=== PATIENT | male | born 1935 | race Caucasian/White ===

== ENCOUNTER 2018-05-15 00:11 | Emergency (ER) | payer MEDICARE, OTHER ==
[2018-05-15 00:25] VITALS: BP 138/82
--- NOTE | 2018-05-15 00:34 | EDM.PDOC ---
ED HPI GENERAL MEDICAL PROBLEM - General Chief Complaint: Genitourinary Problem Stated Complaint: NEEDS BLADDER DRAINED Time Seen by Provider: 05/15/18 00:15 Source of Information: Reports: Patient History Limitations: Reports: No Limitations - History of Present Illness INITIAL COMMENTS - FREE TEXT/NARRATIVE: 82-year-old male who [place] day and drinking coffee did not frequent the bathroom often enough and developed acute urinary retention. This has happened to him several times over the past 5- 10 years. It hasn't happened since he stopped drinking beer 4 years ago. He had no urinary symptoms prior such as dysuria, back pain or fever. He does have benign prostatic hypertrophy. Onset: Gradual (Over the course of 12 hours) Location: Reports: Abdomen Severity: Moderate Associated Symptoms: Reports: No Other Symptoms - Related Data Allergies Allergy/AdvReac Type Severity Reaction Status Date / Time simvastatin Allergy Other Verified 05/15/18 00:23 Home Meds: Home Meds Amitriptyline [Elavil] 25 mg PO BEDTIME 07/24/13 [History] Ascorbic Acid [Vitamin C] 500 mg PO DAILY 07/24/13 [History] Aspirin [Patito Chewable] 81 mg PO DAILY 07/24/13 [History] Calcium Carbonate/Vitamin D3 [Calcium 500 + Vit D 200 Caplet] 1 tab PO DAILY 01/29 [History] Doxazosin Mesylate [Cardura] 8 mg PO BEDTIME 07/24/13 [History] Fish Oil/[place]-3 Fatty Acids [Fish Oil] 1 each PO DAILY 07/24/13 [History] Mometasone Furoate [Nasonex [place]] 2 spray RASHEEDA DAILY 07/24/13 [History] Multivitamin [Multivitamins] 1 each PO DAILY 07/24/13 [History] Omeprazole Magnesium [Prilosec Otc] 20 mg PO BEDTIME 07/24/13 [History] Sildenafil [Viagra] 100 mg PO BEDTIME PRN 07/24/13 [History] amLODIPine [Norvasc] 5 mg PO BEDTIME 07/24/13 [History] atorvaSTATin [Lipitor] 40 mg PO BEDTIME 07/24/13 [History] Levothyroxine 75 mcg PO ACBREAKFAST 10/10/15 [History] Past Medical History HEENT History: Reports: Cataract Cardiovascular History: Reports: High Cholesterol, Hypertension Gastrointestinal History: Reports: Hemorrhoids Musculoskeletal History: Reports: Arthritis Neurological History: Reports: None Endocrine/Metabolic History: Reports: Hypothyroidism Oncologic (Cancer) History: Reports: Basal Cell Carcinoma Other Oncologic History: had skin cancer removed from left upper chest Oct 04, 2015 - Infectious Disease History Infectious Disease History: Reports: Chicken Pox - Past Surgical History HEENT Surgical History: Reports: Naso-Sinus Surgery, Oral Surgery, Other (See Below) Other HEENT Surgeries/Procedures: uvula removed GI Surgical History: Reports: Other (See Below) Other GI Surgeries/Procedures: hemorrhoid surgery Neurological Surgical History: Reports: Intracranial Other Neurological Surgeries/Procedures: benign brain tumor removed Musculoskeletal Surgical History: Reports: Arthroscopic Knee Oncologic Surgical History: Reports: Other (See Below) Social & Family History - Family History Family Medical History: Noncontributory - Tobacco Use Smoking Status *Q: Never Smoker - Caffeine Use Caffeine Use: Reports: Coffee - Recreational Drug Use Recreational Drug Use: No ED ROS GENERAL - Review of Systems Review Of Systems: See Below Constitutional: Denies: Fever, Chills Respiratory: Denies: Shortness of Breath Cardiovascular: Denies: Chest Pain GI/Abdominal: Reports: Abdominal Pain. Denies: Nausea, Vomiting : Reports: Urinary Retention ED EXAM, RENAL/ - Physical Exam Exam: See Below Exam Limited By: No Limitations General Appearance: Alert, Moderate Distress Respiratory/Chest: No Respiratory Distress GI/Abdominal: Distended (Tight and uncomfortable in the suprapubic area) Neurological: Alert, Oriented Course - Vital Signs Last Recorded V/S: Last Vital Signs Temp 97.2 F 05/15/18 00:24 Pulse 71 05/15/18 00:24 Resp 15 05/15/18 00:24 BP 138/82 05/15/18 00:24 Pulse Ox 97 05/15/18 00:24 - Orders/Labs/Meds Orders: Active Orders 24 hr Category Date Time Status Urinary Catheter Assessment [RC] ASDIRECTED Care 05/15/18 00:39 Active - Re-Assessments/Exams Free Text/Narrative Re-Assessment/Exam: 05/15/18 00:32 A Greene was placed, and over 1100 mL of urine was released. It was clear, and his symptoms resolved. The Greene was removed and the patient will return if symptoms recur. Departure - Departure Time of Disposition: 00:42 Disposition: Home, Self-Care 01 Condition: Good Clinical Impression: Retention of urine - Discharge Information Instructions: Acute Urinary Retention, Male Referrals: Sterling Benavides MD [Primary Care Provider] - Forms: ED Department Discharge Care Plan Goals: Avoid holding urine, when you feel the urge to go, go to the bathroom. Return if symptoms recur. - My Orders Last 24 Hours: My Active Orders 05/15/18 00:39 Urinary Catheter Assessment [RC] ASDIRECTED - Assessment/Plan Last 24 Hours: My Active Orders 05/15/18 00:39 Urinary Catheter Assessment [RC] ASDIRECTED
== END 2018-05-15 00:42 | disposition home or self-care (01) ==
LOC: JP.ED 00:11
DX: R33.9 Retention of urine, unspecified (principal); I10 Essential (primary) hypertension; E78.00 Pure hypercholesterolemia, unspecified; E03.9 Hypothyroidism, unspecified; Z88.8 Allergy status to other drugs, medicaments and biological substances; Z79.899 Other long term (current) drug therapy; Z79.82 Long term (current) use of aspirin
CPT/HCPCS: 51702; 99282; 99283

== ENCOUNTER 2020-06-27 14:53 | Emergency (ER) | payer MEDICARE, OTHER ==
[2020-06-27 15:15] VITALS: BP 142/84; PULSE 82
--- NOTE | 2020-06-27 15:32 | EDM.PDOC ---
ED HPI GENERAL MEDICAL PROBLEM - General Chief Complaint: Genitourinary Problem Stated Complaint: BLADDER DRAIN Time Seen by Provider: 06/27/20 15:00 Source of Information: Reports: Patient History Limitations: Reports: No Limitations - History of Present Illness Onset: Today, Sudden Duration: Getting Worse. No: Waxing/Waning Location: Reports: Abdomen Quality: Reports: Pressure Severity: Moderate Improves with: Reports: None Worsens with: Reports: None Associated Symptoms: Reports: No Other Symptoms - Related Data Allergies Allergy/AdvReac Type Severity Reaction Status Date / Time simvastatin AdvReac Muscle Verified 06/29/19 09:59 Aches Home Meds: Home Meds Amitriptyline [Elavil] 25 mg PO BEDTIME 07/24/13 [History] Ascorbic Acid [Vitamin C] 1,000 mg PO DAILY 07/24/13 [History] Aspirin [Patito Chewable] 81 mg PO DAILY 07/24/13 [History] Calcium Carbonate/Vitamin D3 [Calcium 500 + Vit D 200 Caplet] 1 tab PO DAILY 07/24/13 [History] Doxazosin Mesylate [Cardura] 8 mg PO BEDTIME 07/24/13 [History] Fish Oil/[place]-3 Fatty Acids [Fish Oil] 1 each PO DAILY 07/24/13 [History] Mometasone Furoate [Nasonex [place]] 2 spray RASHEEDA DAILY 07/24/13 [History] Multivitamin [Multivitamins] 1 each PO DAILY 07/24/13 [History] Omeprazole Magnesium [Prilosec Otc] 20 mg PO BEDTIME 07/24/13 [History] Sildenafil [Viagra] 100 mg PO BEDTIME PRN 07/24/13 [History] amLODIPine [Norvasc] 5 mg PO BEDTIME 07/24/13 [History] atorvaSTATin [Lipitor] 40 mg PO BEDTIME 07/24/13 [History] Levothyroxine 75 mcg PO ACBREAKFAST 10/10/15 [History] Past Medical History HEENT History: Reports: Cataract Cardiovascular History: Reports: High Cholesterol, Hypertension Respiratory History: Reports: Sleep Apnea Gastrointestinal History: Reports: Colon Polyp, GERD, Hemorrhoids Genitourinary History: Reports: BPH, Other (See Below) Other Genitourinary History: Acute urinary retention several times over past 5- 10 years, [place] to drain Musculoskeletal History: Reports: None Other Musculoskeletal History: s/p R partial knee 06/29/19 Neurological History: Reports: None Psychiatric History: Reports: None Endocrine/Metabolic History: Reports: Hypothyroidism Hematologic History: Reports: None Immunologic History: Reports: None Oncologic (Cancer) History: Reports: Basal Cell Carcinoma Other Oncologic History: had skin cancer removed from left upper chest Oct 04, 2015 Dermatologic History: Reports: Other (See Below) Other Dermatologic History: history of basal cell carcinoma - Infectious Disease History Infectious Disease History: Reports: Chicken Pox, Measles, Mumps - Past Surgical History Head Surgeries/Procedures: Reports: None HEENT Surgical History: Reports: Cataract Surgery, Naso-Sinus Surgery, Oral Surgery, Other (See Below) Other HEENT Surgeries/Procedures: uvula removed Cardiovascular Surgical History: Reports: None Respiratory Surgical History: Reports: None GI Surgical History: Reports: Colonoscopy, Other (See Below) Other GI Surgeries/Procedures: hemorrhoid surgery Neurological Surgical History: Reports: Intracranial Other Neurological Surgeries/Procedures: benign brain tumor removed Musculoskeletal Surgical History: Reports: Arthroscopic Knee, Knee Replacement, Other (See Below) Other Musculoskeletal Surgeries/Procedures:: L partial knee arthroplasty ~2004. R knee repair with hardware 01/2015. R partial knee arthroplasty 06/29/2019 Oncologic Surgical History: Reports: Other (See Below) Dermatological Surgical History: Reports: Skin Biopsy Social & Family History - Family History Family Medical History: Noncontributory - Tobacco Use Tobacco Use Status *Q: Never Tobacco User - Caffeine Use Caffeine Use: Reports: Coffee ED ROS GENERAL - Review of Systems Review Of Systems: See Below Constitutional: Reports: No Symptoms HEENT: Reports: No Symptoms Respiratory: Reports: No Symptoms Cardiovascular: Reports: No Symptoms Endocrine: Reports: No Symptoms GI/Abdominal: Reports: No Symptoms : Reports: Urinary Retention Musculoskeletal: Reports: No Symptoms Skin: Reports: No Symptoms ED EXAM, RENAL/ - Physical Exam Exam: See Below Text/Narrative:: Alert cooperative elderly male no distress lying quietly on the gurney genital exam unremarkable of the head and the exam appears to be without trauma or abnormality chest clear regular rate and rhythm abdomen appears to be generally soft with a mass there initially before urine was drained. External genitalia appears to be normal with a catheter in place. Skin extremities are normal Exam Limited By: No Limitations General Appearance: Alert, WD/WN, Anxious, Mild Distress Nose: Normal Inspection, Normal Mucosa, No Blood Head: Atraumatic Neck: Normal Inspection Respiratory/Chest: No Respiratory Distress Cardiovascular: Regular Rate, Rhythm GI/Abdominal: Normal Bowel Sounds, Mass (Male) Exam: Normal Inspection Extremities: Normal Inspection Course - Vital Signs Text/Narrative:: Catheter is placed as the patient has had this on occasions on the past. He is draining urine and feeling better. Historically he gets it placed urine removed and catheter is removed until the next time which is usually some months Pain better by about 4 PM and is discharged Last Recorded V/S: Last Vital Signs Temp 35.6 C L 06/27/20 15:23 Pulse 82 06/27/20 15:23 Resp 12 06/27/20 15:23 BP 142/84 H 06/27/20 15:23 Pulse Ox 98 06/27/20 15:23 Departure - Departure Time of Disposition: 16:05 Disposition: Home, Self-Care 01 Condition: Good Clinical Impression: Urine retention, Retention of urine - Discharge Information Instructions: Acute Urinary Retention, Male, [id number] Referrals: Sterling Benavides MD [Primary Care Provider] - Forms: ED Department Discharge Sepsis Event Note (ED) - Evaluation Sepsis Screening Result: No Definite Risk - Focused Exam Vital Signs: Vital Signs Temp Pulse Resp BP Pulse Ox 06/27/20 15:23 35.6 C L 82 12 142/84 H 98 06/27/20 15:14 35.6 C L 82 12 142/84 H 98
== END 2020-06-27 16:14 | disposition home or self-care (01) ==
LOC: JP.ED 14:53
DX: R33.9 Retention of urine, unspecified (principal); I10 Essential (primary) hypertension; E78.00 Pure hypercholesterolemia, unspecified; K21.9 Gastro-esophageal reflux disease without esophagitis; E03.9 Hypothyroidism, unspecified; Z88.8 Allergy status to other drugs, medicaments and biological substances; Z79.82 Long term (current) use of aspirin; Z79.899 Other long term (current) drug therapy
CPT/HCPCS: 99283

== ENCOUNTER 2020-08-14 14:24 | Emergency (ER) | payer MEDICARE, OTHER ==
[2020-08-14 15:07] VITALS: BP 133/77; PULSE 75
[2020-08-14] MEDS ORDERED: Bacitracin Oint 1 GM U/D Packet TOP ONE (15:48)
--- NOTE | 2020-08-14 15:51 | EDM.PDOC ---
ED HPI GENERAL MEDICAL PROBLEM - General Chief Complaint: Upper Extremity Injury/Pain Stated Complaint: LEFT THUMB INJURED WHILE USING CROSSBOW Time Seen by Provider: 08/14/20 15:45 Source of Information: Reports: Patient, RN Notes Reviewed History Limitations: Reports: No Limitations - History of Present Illness INITIAL COMMENTS - FREE TEXT/NARRATIVE: 85-year-old gentleman presents emergency department day with injury to his left thumb he injured himself on a crossbow when he accidentally put his thumb up above the rail and ended up taking out the distal aspect of his nail and finger - Related Data Allergies Allergy/AdvReac Type Severity Reaction Status Date / Time simvastatin AdvReac Muscle Verified 08/14/20 15:13 Aches Home Meds: Home Meds Amitriptyline [Elavil] 25 mg PO BEDTIME 07/24/13 [History] Ascorbic Acid [Vitamin C] 1,000 mg PO DAILY 07/24/13 [History] Aspirin [Patito Chewable] 81 mg PO DAILY 07/24/13 [History] Calcium Carbonate/Vitamin D3 [Calcium 500 + Vit D 200 Caplet] 1 tab PO DAILY 07/24/13 [History] Doxazosin Mesylate [Cardura] 8 mg PO BEDTIME 07/24/13 [History] Fish Oil/[place]-3 Fatty Acids [Fish Oil] 1 each PO DAILY 07/24/13 [History] Mometasone Furoate [Nasonex [place]] 2 spray RASHEEDA DAILY 07/24/13 [History] Multivitamin [Multivitamins] 1 each PO DAILY 07/24/13 [History] Omeprazole Magnesium [Prilosec Otc] 20 mg PO BEDTIME 07/24/13 [History] Sildenafil [Viagra] 100 mg PO BEDTIME PRN 07/24/13 [History] amLODIPine [Norvasc] 5 mg PO BEDTIME 07/24/13 [History] atorvaSTATin [Lipitor] 40 mg PO BEDTIME 07/24/13 [History] Levothyroxine 75 mcg PO ACBREAKFAST 10/10/15 [History] Past Medical History HEENT History: Reports: Cataract Cardiovascular History: Reports: High Cholesterol, Hypertension Respiratory History: Reports: Sleep Apnea Gastrointestinal History: Reports: Colon Polyp, GERD, Hemorrhoids Genitourinary History: Reports: BPH, Other (See Below) Other Genitourinary History: Acute urinary retention several times over past 5- 10 years, [place] to drain Other Musculoskeletal History: s/p R partial knee 06/29/19 Endocrine/Metabolic History: Reports: Hypothyroidism Hematologic History: Reports: None Immunologic History: Reports: None Oncologic (Cancer) History: Reports: Basal Cell Carcinoma Other Oncologic History: had skin cancer removed from left upper chest Oct 04, 2015 Dermatologic History: Reports: Other (See Below) Other Dermatologic History: history of basal cell carcinoma - Infectious Disease History Infectious Disease History: Reports: Chicken Pox, Measles, Mumps - Past Surgical History Head Surgeries/Procedures: Reports: None HEENT Surgical History: Reports: Cataract Surgery, Naso-Sinus Surgery, Oral Surgery, Other (See Below) Other HEENT Surgeries/Procedures: uvula removed Cardiovascular Surgical History: Reports: None Respiratory Surgical History: Reports: None GI Surgical History: Reports: Colonoscopy, Other (See Below) Other GI Surgeries/Procedures: hemorrhoid surgery Neurological Surgical History: Reports: Intracranial Other Neurological Surgeries/Procedures: benign brain tumor removed Musculoskeletal Surgical History: Reports: Arthroscopic Knee, Knee Replacement, Other (See Below) Other Musculoskeletal Surgeries/Procedures:: L partial knee arthroplasty ~2004. R knee repair with hardware 01/2015. 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 Dermatological Surgical History: Reports: Skin Biopsy Social & Family History - Family History Family Medical History: No Pertinent Family History - Tobacco Use Tobacco Use Status *Q: Never Tobacco User - Caffeine Use Caffeine Use: Reports: Coffee Review of Systems - Review of Systems Review Of Systems: See Below Musculoskeletal: Reports: Hand Pain Skin: Reports: Wound ED EXAM, GENERAL - Physical Exam Exam: See Below Free Text/Narrative:: Examination of the left hand he has full range of motion of all digits radial pulses +2 he is missing the middle half of the nail on digit #1 there is a laceration underneath that approximately 2 cm Exam Limited By: No Limitations General Appearance: Alert, WD/WN, No Apparent Distress ED TRAUMA EXTREMITY PROCEDURES - Laceration/Wound Repair Left Digit - 1st (Thumb) Lac/Wound Length In cm: 2 Appearance: Superficial Distal NVT: Neuro & Vascular Intact, No Tendon Injury Anesthetic Type: Digital Local Anesthesia - Lidocaine (Xylocaine): 1% Plain Local Anesthetic Volume: 2cc Skin Prep: Saline Saline Irrigation (cc's): 60 Exploration/Debridement/Repair: Wound Explored, In a Bloodless Field, Explored to Base Suture Size: 4-0 # of Sutures: 3 Suture Type: Prolene Tetanus Status Addressed: Yes (2014) Complications: No Course - Vital Signs Last Recorded V/S: Last Vital Signs Temp 97.7 F 08/14/20 15:17 Pulse 75 08/14/20 15:17 Resp 16 08/14/20 15:17 BP 133/77 08/14/20 15:17 Pulse Ox 97 08/14/20 15:17 - Orders/Labs/Meds Orders: Active Orders 24 hr Category Date Time Status Fingers Thumb Lt FA [CR] Stat Exams 08/14/20 15:48 Taken Meds: Medications Discontinued Medications Generic Name Dose Route Start Last Admin Trade Name Toritoq PRN Reason Stop Dose Admin Bacitracin 1 dose 08/14/20 15:48 08/14/20 15:56 Bacitracin Oint 1 Gm TOP 08/14/20 15:49 1 dose ONETIME ONE Administration Lidocaine HCl 5 ml 08/14/20 15:48 08/14/20 15:56 Xylocaine-Mpf 1% INJECT 08/14/20 15:49 5 ml ONETIME ONE Administration Departure - Departure Time of Disposition: 16:41 Disposition: Home, Self-Care 01 Condition: Fair Clinical Impression: Laceration of left thumb Qualifiers: Encounter type: initial encounter Damage to nail status: without damage Foreign body presence: without foreign body Qualified Code(s): S61.012A - Laceration without foreign body of left thumb without damage to nail, initial encounter - Discharge Information Instructions: Sutured Wound Care Referrals: Sterling Benavides MD [Primary Care Provider] - Forms: ED Department Discharge Additional Instructions: Follow wound care instruction sheet, return to the emergency department or clinic for suture removal in 10 days Sepsis Event Note (ED) - Evaluation Sepsis Screening Result: No Definite Risk - Focused Exam Vital Signs: Vital Signs Temp Pulse Resp BP Pulse Ox 08/14/20 15:17 97.7 F 75 16 133/77 97 08/14/20 15:05 97.7 F 75 16 133/77 97 - My Orders Last 24 Hours: My Active Orders 08/14/20 15:48 Fingers Thumb Lt FA [CR] Stat - Assessment/Plan Last 24 Hours: My Active Orders 08/14/20 15:48 Fingers Thumb Lt FA [CR] Stat Plan: Assessment Acuity = acute Site and laterality = laceration left thumb Etiology = trauma crossbow Manifestations = none Location of injury = Home Lab values = none Plan Suture removal in 10 days, follow wound care instruction sheet This note was dictated using [employer] voice recognition software please call with any questions on syntax or grammar.
--- NOTE | 2020-08-15 12:17 | CR ---
Fingers Thumb Lt FA CLINICAL HISTORY: Trauma FINDINGS: No fractures identified. There is some soft tissue swelling. There is periarticular spurring at the IP joint. There is some asymmetry at the first MCP joint. This may represent some joint laxity. There is osteoarthritic change IMPRESSION: No fracture Osteoarthritic changes
== END 2020-08-14 16:53 | disposition home or self-care (01) ==
LOC: JP.ED 14:24
DX: S61.012A Laceration without foreign body of left thumb without damage to nail, initial encounter (principal); I10 Essential (primary) hypertension; E78.00 Pure hypercholesterolemia, unspecified; K21.9 Gastro-esophageal reflux disease without esophagitis; E03.9 Hypothyroidism, unspecified; Z88.8 Allergy status to other drugs, medicaments and biological substances; Z79.82 Long term (current) use of aspirin; Z79.899 Other long term (current) drug therapy; W22.8XXA Striking against or struck by other objects, initial encounter
CPT/HCPCS: 12001; 73140; 99283; J2001

== ENCOUNTER 2021-02-22 21:58 | Emergency (ER) | payer MEDICARE, OTHER ==
[2021-02-22 22:18] VITALS: BP 148/91; PULSE 102
--- NOTE | 2021-02-22 23:22 | EDM.PDOC ---
ED HPI GENERAL MEDICAL PROBLEM - General Chief Complaint: Genitourinary Problem Stated Complaint: BLADDER ISSUES Time Seen by Provider: 02/22/21 22:07 Source of Information: Reports: Patient History Limitations: Reports: No Limitations - History of Present Illness INITIAL COMMENTS - FREE TEXT/NARRATIVE: Orion is an 85-year-old male presenting to the ED for evaluation of urinary retention. Patient has been unable to void since 1500 hrs. today. He is feeling suprapubic pressure and is quite anxious. He has had problems in the past with urinary retention requiring a Greene catheter. Denies any fever, chills, nausea or vomiting, diarrhea or constipation. He has had no urgency, frequency, or burning with urination but he has had urinary retention. He has had no change in appetite. Pelvic Pain Score (Numeric/FACES): 8 - Related Data Allergies Allergy/AdvReac Type Severity Reaction Status Date / Time simvastatin AdvReac Muscle Verified 02/22/21 22:16 Aches Home Meds: Home Meds Amitriptyline [Elavil] 25 mg PO BEDTIME 07/24/13 [History] Ascorbic Acid [Vitamin C] 1,000 mg PO DAILY 07/24/13 [History] Aspirin [Patito Chewable] 81 mg PO DAILY 07/24/13 [History] Calcium Carbonate/Vitamin D3 [Calcium 500 + Vit D 200 Caplet] 1 tab PO DAILY 07/24/13 [History] Doxazosin Mesylate [Cardura] 8 mg PO BEDTIME 07/24/13 [History] Fish Oil/[place]ict[place]-3 Fatty Acids [Fish Oil] 1 each PO DAILY 07/24/13 [History] Mometasone Furoate [Nasonex [place]] 2 spray RASHEEDA DAILY 07/24/13 [History] Multivitamin [Multivitamins] 1 each PO DAILY 07/24/13 [History] Omeprazole Magnesium [Prilosec Otc] 20 mg PO BEDTIME 07/24/13 [History] Sildenafil [Viagra] 100 mg PO BEDTIME PRN 07/24/13 [History] amLODIPine [Norvasc] 5 mg PO BEDTIME 07/24/13 [History] atorvaSTATin [Lipitor] 40 mg PO BEDTIME 07/24/13 [History] Levothyroxine 75 mcg PO ACBREAKFAST 10/10/15 [History] Past Medical History HEENT History: Reports: Cataract Cardiovascular History: Reports: High Cholesterol, Hypertension Respiratory History: Reports: Sleep Apnea Gastrointestinal History: Reports: Colon Polyp, GERD, Hemorrhoids Genitourinary History: Reports: BPH, Other (See Below) Other Genitourinary History: Acute urinary retention several times over past 5- 10 years, [place] to drain Musculoskeletal History: Reports: None Other Musculoskeletal History: s/p R partial knee 06/29/19 Neurological History: Reports: None Psychiatric History: Reports: None Endocrine/Metabolic History: Reports: Hypothyroidism Hematologic History: Reports: None Immunologic History: Reports: None Oncologic (Cancer) History: Reports: Basal Cell Carcinoma Other Oncologic History: had skin cancer removed from left upper chest Oct 04, 2015 Dermatologic History: Reports: Other (See Below) Other Dermatologic History: history of basal cell carcinoma - Infectious Disease History Infectious Disease History: Reports: Chicken Pox, Measles, Mumps Other Infectious Disease History: covid vacc - Past Surgical History Head Surgeries/Procedures: Reports: None HEENT Surgical History: Reports: Cataract Surgery, Naso-Sinus Surgery, Oral Surgery, Other (See Below) Other HEENT Surgeries/Procedures: uvula removed Cardiovascular Surgical History: Reports: None Respiratory Surgical History: Reports: None GI Surgical History: Reports: Colonoscopy, Other (See Below) Other GI Surgeries/Procedures: hemorrhoid surgery Neurological Surgical History: Reports: Intracranial Other Neurological Surgeries/Procedures: benign brain tumor removed Musculoskeletal Surgical History: Reports: Arthroscopic Knee, Knee Replacement, Other (See Below) Other Musculoskeletal Surgeries/Procedures:: L partial knee arthroplasty ~2004. R knee repair with hardware 01/2015. 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 Dermatological Surgical History: Reports: Skin Biopsy Social & Family History - Family History Family Medical History: No Pertinent Family History - Tobacco Use Tobacco Use Status *Q: Former Tobacco User Used Tobacco, but Quit: Yes Month/Year Tobacco Last Used: - Caffeine Use Caffeine Use: Reports: Coffee - Recreational Drug Use Recreational Drug Use: No ED ROS GENERAL - Review of Systems Review Of Systems: See Below Constitutional: Reports: No Symptoms : Reports: Pain (Prepubic fullness and pain), Urinary Retention Musculoskeletal: Reports: No Symptoms ED EXAM, RENAL/ - Physical Exam Exam: See Below Exam Limited By: No Limitations General Appearance: Alert, No Apparent Distress (After the catheter was placed the patient is feeling much better. He had over a liter out and the Greene was clamped for 15 minutes and then reopened with an additional several 100 cc of urine output.) Cardiovascular: Normal Peripheral Pulses, Regular Rate, Rhythm, No Murmur GI/Abdominal: Normal Bowel Sounds, Soft, Non-Tender Course - Vital Signs Last Recorded V/S: Last Vital Signs Temp 36.7 C 02/22/21 22:16 Pulse 102 H 02/22/21 22:16 Resp 16 02/22/21 22:16 BP 148/91 H 02/22/21 22:16 Pulse Ox 96 02/22/21 22:16 - Orders/Labs/Meds Orders: Active Orders 24 hr Category Date Time Status Insert Urinary Catheter [OM.PC] Q24H Care 02/22/21 22:15 Ordered Urinary Catheter Assessment [RC] ASDIRECTED Care 02/22/21 22:08 Active Labs: Laboratory Tests 02/22/21 Range/Units 22:25 Urine Color Yellow (YELLOW) Urine Appearance Clear (CLEAR) Urine pH 5.0 (5.0-8.0) Ur Specific [place] 1.010 (1.008-1.030) Urine Protein Negative (NEGATIVE) mg/dL Urine Glucose (UA) Negative (NEGATIVE) mg/dL Urine Ketones Negative (NEGATIVE) mg/dL Urine Occult Blood Moderate H (NEGATIVE) Urine Nitrite Negative (NEGATIVE) Urine Bilirubin Negative (NEGATIVE) Urine Urobilinogen 0.2 (0.2-1.0) EU/dL Ur Leukocyte Esterase Negative (NEGATIVE) Urine RBC 0-5 (0-5) Urine WBC 0-5 (0-5) Ur Epithelial Cells Rare Amorphous Sediment Not seen Urine Bacteria Rare Urine Mucus Not seen - Re-Assessments/Exams Free Text/Narrative Re-Assessment/Exam: 02/22/21 23:20 the patient presents with urinary retention. A Greene catheter was placed with over 1200 cc of urine out and improvement in patient's symptoms. We will leave the Greene catheter in and have him follow-up with his primary care provider in follow-up. He does have a history for urinary retention about 6 months ago. He will likely need to see urology to determine why he keeps having urinary retention. Urinalysis was unremarkable for any infection. Care of the catheter was discussed and at this time the patient is suitable for discharge home. Departure - Departure Time of Disposition: 23:21 Disposition: Home, Self-Care 01 Clinical Impression: Acute urinary retention - Discharge Information Instructions: Indwelling Urinary Catheter Care, Adult Referrals: Sterling Benavides MD [Primary Care Provider] - Care Plan Goals: Follow-up with your primary care provider for discussion of repeated episodes of urinary retention. You will likely need to have a referral to urology. Return to the ED if you have issues with the Greene catheter. Sepsis Event Note (ED) - Evaluation Sepsis Screening Result: No Definite Risk - Focused Exam Vital Signs: Vital Signs Temp Pulse Resp BP Pulse Ox 02/22/21 22:16 36.7 C 102 H 16 148/91 H 96 02/22/21 22:09 36.7 C 102 H 16 148/91 H 96 - Problem List & Annotations (1) Acute urinary retention SNOMED Code(s): 411801048 Code(s): R33.8 - OTHER RETENTION OF URINE Status: Acute Priority: Low Current Visit: Yes - Problem List Review Problem List Initiated/Reviewed/Updated: Yes - My Orders Last 24 Hours: My Active Orders 02/22/21 22:08 Urinary Catheter Assessment [RC] ASDIRECTED 02/22/21 22:15 Insert Urinary Catheter [OM.PC] Q24H - Assessment/Plan Last 24 Hours: My Active Orders 02/22/21 22:08 Urinary Catheter Assessment [RC] ASDIRECTED 02/22/21 22:15 Insert Urinary Catheter [OM.PC] Q24H
== END 2021-02-22 23:44 | disposition home or self-care (01) ==
LOC: JP.ED 21:58
DX: N40.1 Benign prostatic hyperplasia with lower urinary tract symptoms (principal); R33.8 Other retention of urine; I10 Essential (primary) hypertension; E78.00 Pure hypercholesterolemia, unspecified; K21.9 Gastro-esophageal reflux disease without esophagitis; E03.9 Hypothyroidism, unspecified; Z72.0 Tobacco use; Z88.8 Allergy status to other drugs, medicaments and biological substances; Z79.82 Long term (current) use of aspirin; Z79.899 Other long term (current) drug therapy
CPT/HCPCS: 51702; 81001; 99283-25

== ENCOUNTER 2021-08-05 12:51 | Emergency (ER) | payer MEDICARE, OTHER ==
[2021-08-05 13:09] VITALS: BP 152/74; PULSE 86
[2021-08-05] MEDS ORDERED: Acetaminophen 500 MG Tab PO ONE (13:15)
--- NOTE | 2021-08-05 13:24 | EDM.PDOC ---
ED HPI GENERAL MEDICAL PROBLEM - General Chief Complaint: General Stated Complaint: COVID SYMPTOMS Time Seen by Provider: 08/05/21 13:05 Source of Information: Reports: Patient, Old Records, RN History Limitations: Reports: No Limitations - History of Present Illness INITIAL COMMENTS - FREE TEXT/NARRATIVE: 86 yo male presents with onset of illness on Saturday night. Has been running fevers on and off and taking acetaminophen for that. Says his joints hurt and he has mild dysuria with voiding. No other complaints at this time. Is fully vaccinated for Covid. His is not currently ill. Onset: Gradual Onset Date: 08/02/21 Duration: Day(s): (2.5), Waxing/Waning Location: Reports: Generalized Quality: Reports: Other (no pain except his joints) Severity: Moderate Improves with: Reports: Medication (Tylenol) Worsens with: Reports: Other (unsure) Context: Reports: Other (See HPI) Associated Symptoms: Reports: Fever/Chills, Other (mild dysuria and joint pains). Denies: Chest Pain, Cough, Headaches, Nausea/Vomiting, Rash, Shortness of Breath Treatments [employer] SUPER[employer]OR: Reports: Other (see below) (none in last 5.5 hrs) - Related Data Allergies Allergy/AdvReac Type Severity Reaction Status Date / Time simvastatin AdvReac Muscle Verified 02/22/21 22:16 Aches Home Meds: Home Meds Amitriptyline [Elavil] 25 mg PO BEDTIME 07/24/13 [History] Ascorbic Acid [Vitamin C] 1,000 mg PO DAILY 07/24/13 [History] Aspirin [Patito Chewable] 81 mg PO DAILY 07/24/13 [History] Calcium Carbonate/Vitamin D3 [Calcium 500 + Vit D 200 Caplet] 1 tab PO DAILY 07/24/13 [History] Doxazosin Mesylate [Cardura] 8 mg PO BEDTIME 07/24/13 [History] Fish Oil/[place]-3 Fatty Acids [Fish Oil] 1 each PO DAILY 07/24/13 [History] Mometasone Furoate [Nasonex [place]] 2 spray RASHEEDA DAILY 07/24/13 [History] Multivitamin [Multivitamins] 1 each PO DAILY 07/24/13 [History] Omeprazole Magnesium [Prilosec Otc] 20 mg PO BEDTIME 07/24/13 [History] Sildenafil [Viagra] 100 mg PO BEDTIME PRN 07/24/13 [History] amLODIPine [Norvasc] 5 mg PO BEDTIME 07/24/13 [History] atorvaSTATin [Lipitor] 40 mg PO BEDTIME 07/24/13 [History] Levothyroxine 75 mcg PO ACBREAKFAST 10/10/15 [History] Past Medical History HEENT History: Reports: Cataract Cardiovascular History: Reports: High Cholesterol, Hypertension Respiratory History: Reports: Sleep Apnea Gastrointestinal History: Reports: Colon Polyp, GERD, Hemorrhoids Genitourinary History: Reports: BPH, Other (See Below) Other Genitourinary History: Acute urinary retention several times over past 5- 10 years, [place] to drain Musculoskeletal History: Reports: None Other Musculoskeletal History: s/p R partial knee 06/29/19 Neurological History: Reports: None Psychiatric History: Reports: None Endocrine/Metabolic History: Reports: Hypothyroidism Hematologic History: Reports: None Immunologic History: Reports: None Oncologic (Cancer) History: Reports: Basal Cell Carcinoma Other Oncologic History: had skin cancer removed from left upper chest Oct 04, 2015 Dermatologic History: Reports: Other (See Below) Other Dermatologic History: history of basal cell carcinoma - Infectious Disease History Infectious Disease History: Reports: Chicken Pox, Measles, Mumps Other Infectious Disease History: covid vacc - Past Surgical History Head Surgeries/Procedures: Reports: None HEENT Surgical History: Reports: Cataract Surgery, Naso-Sinus Surgery, Oral Surgery, Other (See Below) Other HEENT Surgeries/Procedures: uvula removed Cardiovascular Surgical History: Reports: None Respiratory Surgical History: Reports: None GI Surgical History: Reports: Colonoscopy, Other (See Below) Other GI Surgeries/Procedures: hemorrhoid surgery Neurological Surgical History: Reports: Intracranial Other Neurological Surgeries/Procedures: benign brain tumor removed Musculoskeletal Surgical History: Reports: Arthroscopic Knee, Knee Replacement, Other (See Below) Other Musculoskeletal Surgeries/Procedures:: L partial knee arthroplasty ~2004. R knee repair with hardware 01/2015. 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 Dermatological Surgical History: Reports: Skin Biopsy Social & Family History - Family History Family Medical History: No Pertinent Family History - Tobacco Use Tobacco Use Status *Q: Never Tobacco User - Caffeine Use Caffeine Use: Reports: Coffee - Recreational Drug Use Recreational Drug Use: No ED ROS GENERAL - Review of Systems Review Of Systems: See Below Constitutional: Reports: Fever, Chills, Malaise HEENT: Reports: No Symptoms Respiratory: Reports: No Symptoms Cardiovascular: Reports: No Symptoms Endocrine: Reports: No Symptoms GI/Abdominal: Reports: No Symptoms : Reports: Dysuria (mild). Denies: Flank Pain Musculoskeletal: Reports: Joint Pain (diffuse, mainly knees and hands) Skin: Reports: No Symptoms Neurological: Reports: No Symptoms Psychiatric: Reports: No Symptoms ED EXAM, GENERAL - Physical Exam Exam: See Below Exam Limited By: No Limitations General Appearance: Alert, WD/WN, No Apparent Distress Eye Exam: Bilateral Eye: Normal Inspection Ears: Normal External Exam, Normal Canal, Hearing Grossly Normal Ear Exam: Bilateral Ear: Auricle Normal, Canal Normal Nose: Normal Inspection, No Blood Throat/Mouth: Normal Inspection, Normal Lips, Normal Oropharynx, Normal Voice, No Airway Compromise Head: Atraumatic, Normocephalic Neck: Normal Inspection Respiratory/Chest: No Respiratory Distress, Lungs Clear, Normal Breath Sounds, No Accessory Muscle Use Cardiovascular: Regular Rate, Rhythm, No Edema GI/Abdominal: Soft, Non-Tender, No Distention. No: Distended Back Exam: Normal Inspection. No: CVA Tenderness (R), CVA Tenderness (L) Extremities: Normal Inspection, Normal Range of Motion, Non-Tender, No Pedal Edema Neurological: Alert, Oriented, CN II-XII Intact, Normal Cognition, No Motor/Sensory Deficits Psychiatric: Normal Affect, Normal Mood Skin Exam: Warm, Dry, Intact, Normal Color, No Rash Course - Vital Signs Text/Narrative:: Post-void bladder scan 100 ml Last Recorded V/S: Last Vital Signs Temp 36.7 C 08/05/21 13:08 Pulse 86 08/05/21 13:08 Resp 16 08/05/21 13:08 BP 152/74 H 08/05/21 13:08 Pulse Ox 96 08/05/21 13:08 - Orders/Labs/Meds Orders: Active Orders 24 hr Category Date Time Status Bladder Scan [RC] ASDIRECTED Care 08/05/21 14:30 Active CULTURE URINE [RM] Stat Lab 08/05/21 14:30 Received HUMAN GRANULOCYTIC ALISIA-HGE Routine Lab 08/05/21 13:57 Received Labs: Laboratory Tests 08/05/21 08/05/21 08/05/21 Range/Units 13:23 13:23 13:32 WBC 7.8 (4.5-11.0) K/uL RBC 4.26 L (4.30-5.90) M/uL Hgb 13.1 (12.0-15.0) g/dL Hct 39.7 L (40.0-54.0) % MCV 93 (80-98) fL MCH 31 (27-31) pg MCHC 33 (32-36) % Plt Count 86 L (150-400) K/uL Sodium 138 L (140-148) mmol/L Potassium 3.8 (3.6-5.2) mmol/L Chloride 102 (100-108) mmol/L Carbon Dioxide 27 (21-32) mmol/L Anion Gap 12.8 (5.0-14.0) mmol/L BUN 15 (7-18) mg/dL Creatinine 1.0 (0.8-1.3) mg/dL Est Cr Clr Drug Dosing 48.74 mL/min Estimated GFR (MDRD) > 60 (>60) Glucose 96 (74-106) mg/dL Calcium 8.4 L (8.5-10.1) mg/dL Urine Color (YELLOW) Urine Appearance (CLEAR) Urine pH (5.0-8.0) Ur Specific [place] (1.008-1.030) Urine Protein (NEGATIVE) mg/dL Urine Glucose (UA) (NEGATIVE) mg/dL Urine Ketones (NEGATIVE) mg/dL Urine Occult Blood (NEGATIVE) Urine Nitrite (NEGATIVE) Urine Bilirubin (NEGATIVE) Urine Urobilinogen (0.2-1.0) EU/dL Ur Leukocyte Esterase (NEGATIVE) Urine RBC (0-5) Urine WBC (0-5) Ur Epithelial Cells Amorphous Sediment Urine Bacteria Urine Mucus SARS CoV-2 RNA Rapid ANA ROSA Negative 08/05/21 Range/Units 13:58 WBC (4.5-11.0) K/uL RBC (4.30-5.90) M/uL Hgb (12.0-15.0) g/dL Hct (40.0-54.0) % MCV (80-98) fL MCH (27-31) pg MCHC (32-36) % Plt Count (150-400) K/uL Sodium (140-148) mmol/L Potassium (3.6-5.2) mmol/L Chloride (100-108) mmol/L Carbon Dioxide (21-32) mmol/L Anion Gap (5.0-14.0) mmol/L BUN (7-18) mg/dL Creatinine (0.8-1.3) mg/dL Est Cr Clr Drug Dosing mL/min Estimated GFR (MDRD) (>60) Glucose (74-106) mg/dL Calcium (8.5-10.1) mg/dL Urine Color Yellow (YELLOW) Urine Appearance Slightly cloudy A (CLEAR) Urine pH 6.0 (5.0-8.0) Ur Specific [place] 1.010 (1.008-1.030) Urine Protein Negative (NEGATIVE) mg/dL Urine Glucose (UA) Negative (NEGATIVE) mg/dL Urine Ketones Negative (NEGATIVE) mg/dL Urine Occult Blood Trace-intact H (NEGATIVE) Urine Nitrite Negative (NEGATIVE) Urine Bilirubin Negative (NEGATIVE) Urine Urobilinogen 0.2 (0.2-1.0) EU/dL Ur Leukocyte Esterase Moderate H (NEGATIVE) Urine RBC 0-5 (0-5) Urine WBC Semi-packed H (0-5) Ur Epithelial Cells Rare Amorphous Sediment Occasional Urine Bacteria Moderate Urine Mucus Rare SARS CoV-2 RNA Rapid ANA ROSA Meds: Medications Discontinued Medications Generic Name Dose Route Start Last Admin Trade Name Freq PRN Reason Stop Dose Admin Acetaminophen 1,000 mg 08/05/21 13:15 08/05/21 13:33 Acetaminophen 500 Mg Tab PO 08/05/21 13:16 1,000 mg ONETIME ONE Administration Ceftriaxone Sodium 1 gm 08/05/21 14:28 08/05/21 14:36 Ceftriaxone 1 Gm Vial IM 08/05/21 14:29 1 gm ONETIME ONE Administration Ciprofloxacin 500 mg 08/05/21 14:28 08/05/21 14:36 Ciprofloxacin 500 Mg Tab PO 08/05/21 14:29 500 mg ONETIME ONE Administration Sodium Chloride 1,000 mls @ 250 mls/hr 08/05/21 14:45 Normal Saline IV ASDIRECTED BEBE Lidocaine HCl 5 ml 08/05/21 14:29 08/05/21 14:36 Lidocaine 1% 5 Ml Sdv INJECT 08/05/21 14:30 5 ml ONETIME ONE Administration Departure - Departure Time of Disposition: 15:00 Disposition: Home, Self-Care 01 Condition: Fair Clinical Impression: UTI (urinary tract infection) Qualifiers: Urinary tract infection type: site unspecified Hematuria presence: without hematuria Qualified Code(s): N39.0 - Urinary tract infection, site not specified - Discharge Information *PRESCRIPTION DRUG MONITORING PROGRAM REVIEWED*: Not Applicable *COPY OF PRESCRIPTION DRUG MONITORING REPORT IN PATIENT DARYN: Not Applicable Instructions: Urinary Tract Infection, Adult, [id number] Referrals: Sterling Benavides MD [Primary Care Provider] - Forms: ED Department Discharge Additional Instructions: Take ciprofloxacin 250 mg every 12 hrs until gone. Take acetaminophen as needed for pain or fever relief. Recheck with your doctor on Saturday afternoon or Saturday to follow up on your urine culture. Return if worse. Sepsis Event Note (ED) - Evaluation Sepsis Screening Result: No Definite Risk - Focused Exam Vital Signs: Vital Signs Temp Pulse Resp BP Pulse Ox 08/05/21 13:08 36.7 C 86 16 152/74 H 96 - My Orders Last 24 Hours: My Active Orders 08/05/21 13:57 HUMAN GRANULOCYTIC ALISIA-HGE Routine 08/05/21 14:30 Bladder Scan [RC] ASDIRECTED CULTURE URINE [RM] Stat - Assessment/Plan Last 24 Hours: My Active Orders 08/05/21 13:57 HUMAN GRANULOCYTIC ALISIA-HGE Routine 08/05/21 14:30 Bladder Scan [RC] ASDIRECTED CULTURE URINE [RM] Stat
[2021-08-05] MEDS ORDERED: cefTRIAXone 1 GM Vial IM ONE (14:28)
[2021-08-05] MEDS ORDERED: Ciprofloxacin 500 MG Tab PO ONE (14:28)
[2021-08-05] MEDS ORDERED: Sodium Chloride 0.9% 1,000 ML IV SCH (14:45)
[2021-08-09 12:12] LABS: HGE IGG TITER Negative (Neg:<1:64); HGE IGM TITER Negative (Neg:<1:20)
== END 2021-08-05 15:06 | disposition home or self-care (01) ==
LOC: JP.ED 12:51
DX: N39.0 Urinary tract infection, site not specified (principal); E78.00 Pure hypercholesterolemia, unspecified; I10 Essential (primary) hypertension; Z20.822 Contact with and (suspected) exposure to COVID-19; Z88.8 Allergy status to other drugs, medicaments and biological substances; Z79.82 Long term (current) use of aspirin; Z79.899 Other long term (current) drug therapy
CPT/HCPCS: 36415; 80048; 81001; 85027; 86666; 87086; 87088; 87186; 96372; 99284; A9270; J0696; U0002

== ENCOUNTER 2023-05-19 14:44 | Emergency (ER) | payer MEDICARE, OTHER ==
[2023-05-19 16:31] VITALS: BP 101/57; PULSE 100
== END 2023-05-19 15:49 | disposition home or self-care (01) ==
LOC: JP.ED 14:44
DX: R20.2 Paresthesia of skin (principal); E78.00 Pure hypercholesterolemia, unspecified; I10 Essential (primary) hypertension; E03.9 Hypothyroidism, unspecified; Z79.82 Long term (current) use of aspirin; Z79.899 Other long term (current) drug therapy; Z88.8 Allergy status to other drugs, medicaments and biological substances
CPT/HCPCS: 82947; 99283; 99284